=== PATIENT | male | born 1980 | race Caucasian/White ===

== ENCOUNTER 2020-04-11 21:36 | Emergency (ER) | payer MEDICAID, SELFPAY ==
--- NOTE | 2020-04-11 21:59 | W.ED.GENAD ---
Discharge Plan Disposition Patient Disposition: HOME Condition: Good Discharge Details Clinical Impression: Encounter for preprocedure screening laboratory testing for COVID-19 Primary Care Provider: Unknown,Unknown ED Provider: Kari Lockett Home Meds and New Rx's Prescriptions: Continued buprenorphine-naloxone [Suboxone] 8-2 mg Film 1 film SUBLINGUAL DAILY RF: 0 Discharge Instructions Additional Instructions: Your COVID-19 testing is pending. Please quarantine until your admission on Tuesday. If you develop any symptoms please seek care urgently once again. We will contact you with results. You may request a release of information to appropriate facility on Tuesday. Stand Alone Forms: PENDING COVID-19 TESTING Discharge Data Discharge Date/Time-TO BE ENTERED AT DEPARTURE: 04/11/20 22:30 Medical Decision Making Patient is a pleasant 40-year-old gentleman presenting today requesting a Covid test. He reports that he has been accepted into a local rehab facility for heroin abuse on Tuesday. Requires Covid testing prior to entering our facility. Patient denies shortness of breath, chest pain, change in sense of taste or smell. States that he has been feeling otherwise well. Will plan to run Covid testing. He will call Tuesday to have results back to appropriate facility. Return precautions were discussed. All questions and concerns were addressed and he is in agreement this plan. HPI General Mode of arrival: ambulatory. Date/Time Provider Initiated Documentation: 04/11/20 21:59. Limitations to Documentation: no limitations. Information obtained by: patient and RN notes reviewed. HPI Narrative: Patient is a pleasant 40-year-old gentleman presenting today requesting Covid swab. Patient reports that he has been accepted at a local rehabilitation center for heroin addiction. He states that he was advised to come here for Covid testing. He is requested that these results be faxed to their facility. He denies any headache, shortness of breath, chest pain, fevers, GI upset. Related Data Home Medications Medication Instructions Recorded Confirmed buprenorphine-naloxone [Suboxone] 1 film SUBLINGUAL DAILY 04/11/20 04/11/20 Allergies Allergy/AdvReac Type Severity Reaction Status Date / Time prednisone Allergy Unknown Unverified 04/11/20 22:13 Review of Systems Constitutional Constitutional: Reports as per HPI, Denies chills, Denies fever(s) and Denies headache(s) ENT Ears, Nose, Mouth, and Throat: Denies headache(s) Cardiovascular Cardiovascular: Reports as per HPI, Denies chest pain and Denies dyspnea Respiratory Respiratory: Reports as per HPI, Denies cough and Denies dyspnea Neurologic Neurologic: Denies headache(s) [facility] Medical History Heroin abuse Social History Smoking/Tobacco Use Status: Current every day Smoking risk assessment performed?: Yes Substance use type: heroin Exam Const General: cooperative, healthy appearing, comfortable and no acute distress Nutritional Appearance: average body habitus and well nourished Orientation: alert and awake Resp Effort & Inspection: normal respiratory effort, able to speak in complete sentences and no respiratory distress Auscultation: clear to auscultation bilaterally Cardio Rate: regular rate Rhythm: regular rhythm Heart Sounds: S1 normal and S2 normal Skin General skin exam: no rashes or lesions noted Neuro General: patient alert and patient awake Cognition: normal cognition Speech: speech normal Gait: normal gait Psych Appearance: grossly normal and well kempt Mental Status: mental status grossly normal Speech and Movement: speech and movement normal
[2020-04-11 22:11] VITALS: BP 112/75; PULSE 75; RESP 16; TEMP 36.2; O2SAT 94
--- NOTE | 2020-04-14 08:44 | NUR.NOTE ---
Nursing Note: 0830--pt called for Covid result--per lab specimen was canceled--talked with Amalia Kiko at home--apparently specimen mislabeled--a message was left on his answering machine Tuesday to return to ER for another specimen to be collected--pt states he did not get message--needs result for 1300 today--spoke with Corina Devlin, cloth shearing supervisor--have pt return for a rapid Covid test.--pt notified.
== END 2020-04-11 22:30 | disposition home or self-care (01) ==
PROVIDERS: Emergency Provider Physician Assistant
DX: Z11.59 Encounter for screening for other viral diseases (principal)
CPT/HCPCS: 99281; U0003